=== PATIENT | male | born 1960 | race Caucasian/White ===

== ENCOUNTER 2018-05-01 20:36 | Emergency (ER) | payer OTHER, SELFPAY ==
[2018-05-01] VITALS (7 sets, daily range): BP systolic 176–188; BP diastolic 86–94; PULSE 41–47; RESP 14–17; TEMP 36.4; O2SAT 95–97
--- NOTE | 2018-05-01 21:26 | DI.CT_ITS ---
SYMPTOMS/DIAGNOSIS: RT SIDED HEADACHE, HYPERTENSION, BRADYCARDIA CRANIAL CT (WITHOUT CONTRAST): A noncontrast cranial CT was performed. No priors. The ventricular system is normal in appearance. There is no evidence of an intracranial mass lesion. There is no evidence of a subdural or epidural hematoma. No focal areas of decreased attenuation are seen. CONCLUSION: Normal noncontrast Cranial CT.
--- NOTE | 2018-05-01 21:26 | DI.RAD_ITS ---
SYMPTOMS/DIAGNOSIS: TACHYCARDIA, HYPOTENSION, ? ACUTE DISEASE PA AND LATERAL CHEST: The heart size and pulmonary vasculature are within normal limits. The lungs are clear. No effusions or pneumothoraces are identified. The bones are intact. IMPRESSION: No acute pulmonary process.
--- NOTE | 2018-05-01 21:37 | W.ED.GENAD ---
Discharge Plan Disposition Patient Disposition: HOME Condition: Good Discharge Details Chief Complaint: GenMedical Clinical Impression: Hypertension, Bradycardia Primary Care Provider: Alonzo Palacio ED Provider: Yanni Diop Home Meds and New Rx's Prescriptions: Continue aspirin [Aspirin Low-Strength] 81 MG tablet,chewable 81 mg PO DAILY Qty: 180 RF: 0 amlodipine [Norvasc] 5 MG tablet 5 mg PO DAILY Qty: 90 RF: 4 dronedarone [Multaq] 400 MG tablet 400 mg PO BID Qty: 120 RF: 3 sildenafil [Viagra] 50 MG tablet 50 mg PO PRN Qty: 6 RF: 12 metoprolol succinate [Toprol XL] 25 MG tablet extended release 24 hr 25 mg PO DAILY Qty: 90 RF: 3 ascorbic acid (vitamin C) 1,000 MG tablet,chewable 1,000 mg PO DAILY RF: 0 Discontinued bisoprolol-hydrochlorothiazide 10-6.25 mg Tablet 1 tab PO DAILY RF: 0 Discharge Instructions Instructions: Bradycardia (ED), Hypertension (ED) Additional Instructions: Hold on taking any further bisoprolol/HCTZ for high blood pressure as it may be causing or contributing to your lower heart rate. Hold your metoprolol dose if your heart rate is less than 50. Restart your regular dose amlodipine as directed if your systolic blood pressure greater than 140. Take your other regular medications as directed. Call your primary care doctor's office to schedule follow-up appointment within the next 2 days. Take Tylenol as needed and directed for pain. Eat a well-balanced diet and watch your sodium intake as this may contribute to hypertension. Return to the emergency department with any worsening or new concerning symptoms. Discharge Data Discharge Physician: Yanni Diop Medical Decision Making Patient is a 57-year-old male with a history of hypertension, bradycardia, atrial fibrillation who presents for headache, hypertension and bradycardia at home today. Headache now resolved. Blood pressure at home 200/100, heart rate 40. Blood pressure usually 130s/80s, and heart rate in the past has been in the 50s and after recent change from sotalol/HCTZ to metoprolol, heart rate has been 70s. Patient denies any associated symptoms of chest pain, shortness of breath, vision changes, nausea, vomiting, dizziness, abdominal pain, recent illness. He did take a dose of bisoprolol/HCTZ 10/6.25 mg tonight. Blood pressure on my evaluation 195/97. Heart rate 44. Oxygen saturation and respiratory rate within normal limits. Normal cardiac and lung exam. No focal deficits. Abdomen soft nontender. 2057 --EKG noted a rate of 44, sinus bradycardia, no acute ST elevation or depression. QTc 409. QRS 100. Discussed with patient that as he has currently asymptomatic, and blood pressure has decreased, this is reassuring, however will place an IV, check electrolytes, troponin, chest x-ray and CT head. Discussed with patient that his hypertension could have been due to pain associated with this headache today. We also discussed the possibility of diet and processed foods including high sodium which can contribute to hypertension. He does admit to eating a chicken pot pie. Patient is followed by cardiology Dr. Méndez. We will follow-up on results, reassess and call cardiology for recommendations once workup complete. 2309 -- labs reviewed essentially unremarkable. Creatinine 1.51. Troponin negative. CT head and chest x-ray negative. Will call [facility]. 2329 -- D/w Dr. Méndez -discussed workup and patient being asymptomatic. Recommend patient hold on any further metoprolol for heart rate less than 50, and to restart his amlodipine if blood pressure greater than 140. He recommends that patient no longer take the bisoprololl/hydrochlorothiazide for further hypertension as this likely contributing to the bradycardia. Recommend follow-up with PCP. Plan discussed with patient and he feels good and is requesting to go home. He was instructed to return with any concerns. He is instructed to call his primary care doctor tomorrow morning to schedule follow-up appointment within the next 2 days and return to the ER with any concerns. HPI General Mode of arrival: ambulatory. Date/Time Provider Initiated Documentation: 05/01/18 21:01. Limitations to Documentation: no limitations. Information obtained by: patient. HPI Narrative: Patient is a 57-year-old male with a history of hypertension, bradycardia and atrial fibrillation who presents for headache, hypertension and bradycardia today. Patient states this headache started gradually today, on the right side of his face, felt aching and is now resolved. States it is not the worst headache of his life and denies any thunderclap quality. Denies vision changes, nausea, vomiting, dizziness. He states that he has a history of previous bradycardia in which his heart rate was in the 50s and decreased energy, for which he was seen by his primary care doctor and cardiology and was switched from sotalol/HCTZ to metoprolol one month ago which improved his heart rate to the 70s and increased his energy level. He states he last checked his heart rate 2 days ago and it was 74. He states tonight at the time of his headache, his blood pressure was 205/100 and his heart rate was in the 40s. He states his blood pressure is normally 130s/80s. He states he took his multaq, metoprolol and aspirin this morning. He states for his hypertension tonight, he took a dose of 10/6.25 by bisoprolol/hydrochlorothiazide which he was advised by cardiology to take as needed for hypertension not relieved with his regular medications. He states he was diagnosed with atrial fibrillation 3 years ago but was not recommended to take anticoagulation per Dr. Méndez. Past medical history: Hypertension, bradycardia, atrial fibrillation Surgical history: Knee arthroscopy Social history: Denies tobacco, alcohol or drugs Medications: Aspirin, Multitak, metoprolol, Viagra as needed (denies any recent use of viagra) Allergies: None PCP: Dr. Palacio Cardiology: Dr. Méndez Related Data Home Medications Medication Instructions Recorded Confirmed aspirin [Aspirin Low-Strength] 81 mg PO DAILY #180 tab-cap 04/08/15 05/01/18 ascorbic acid (vitamin C) 1,000 mg PO DAILY 01/12/17 05/01/18 amlodipine [Norvasc] 5 mg PO DAILY #90 tab 05/07/17 05/01/18 dronedarone [Multaq] 400 mg PO BID #120 tab-cap 09/28/17 05/01/18 metoprolol succinate [Toprol XL] 25 mg PO DAILY #90 tab-cap 04/06/18 05/01/18 sildenafil [Viagra] 50 mg PO PRN #6 tab 04/06/18 05/01/18 Previous Rx's Medication Instructions Recorded amlodipine [Norvasc] 5 mg PO DAILY #90 tab 05/07/17 dronedarone [Multaq] 400 mg PO BID #120 tab-cap 09/28/17 metoprolol succinate [Toprol XL] 25 mg PO DAILY #90 tab-cap 04/06/18 sildenafil [Viagra] 50 mg PO PRN #6 tab 04/06/18 Allergies Allergy/AdvReac Type Severity Reaction Status Date / Time metoprolol AdvReac Mild fatigue Unverified 04/06/18 15:48 General Stated Complaint: GenMedical GLADYS: 3 Review of Systems Review of Systems All systems reviewed & are unremarkable except as noted in HPI and below Constitutional Denies chills, Denies excessive sweating, Denies fatigue, Denies fever(s), Denies weakness and Denies weight loss Eyes Reports system reviewed and no additional complaints, except as docu and Denies blurry vision ENT Denies vertigo, Denies dizziness, Denies otalgia, Denies nasal congestion, Denies sore throat and Denies throat swelling Cardiovascular Denies chest pain, Denies syncope, Denies rapid heart rate and Denies dyspnea Respiratory Denies dyspnea Gastrointestinal Denies abdominal pain, Denies diarrhea and Denies vomiting Genitourinary Denies hematuria, Denies dysuria and Denies flank pain Musculoskeletal Denies back pain and Denies joint swelling Integumentary/Breasts Denies lesions and Denies rash Neurologic Denies behavioral changes, Denies confusion, Denies vertigo, Denies dizziness, Denies syncope and Denies weakness Psychiatric Denies behavioral changes, Denies confusion and Denies depression Endocrine Denies excessive sweating and Denies fatigue Hematologic/Lymphatic Denies easy bruising and Denies lymphadenopathy Allergic/Immunologic Denies throat swelling [facility] Family History Mother Essential hypertension Father Heart disease Neoplasm Sister No problems noted. Brother No problems noted. Grandfather No problems noted. Grandfather Heart disease Grandmother Neoplasm Grandmother Neoplasm Sister No problems noted. Social History Smoking/Tobacco Use Status: Never Surgical History Colonoscopy - IV Sedation (07/29/16) Exam Const General: cooperative and healthy appearing Orientation: alert and awake HENAL Head: normal to inspection Ears: hearing grossly normal bilaterally, external ears normal and TM's normal bilaterally General nose exam: external nose normal Face and sinus: normal facial exam Mouth: oral mucosae normal Teeth and gingiva: dentition normal Throat: posterior oropharynx normal Eyes General: appearance normal, both eyes and all related structures Eyelids: eyelids normal Pupils: PERRL EOM: EOM intact bilaterally Neck Neck: normal visual inspection Lymphatic: no lymphadenopathy noted Chest Chest: normal inspection of the chest Resp Effort & Inspection: normal respiratory effort and able to speak in complete sentences Auscultation: clear to auscultation bilaterally Cardio Rate: regular rate Rhythm: regular rhythm GI Inspection: normal to inspection Palpation: soft, not firm, no guarding, no hepatosplenomegaly, no masses and nontender Auscultation: normal bowel sounds Back/Spine/Pelvis Back: no CVA tenderness Skin General skin exam: no rashes or lesions noted Neuro General: alert, awake, oriented x3, no meningeal signs, no focal motor deficits and CN's II-XI intact bilaterally Cognition: normal cognition Speech: speech normal Gait: normal gait and not ataxic Motor: muscle tone normal throughout, strength 5/5 throughout and no pronator drift Sensory Exam: no sensory deficits noted Extrem General: normal to inspection, full ROM and normal capillary refill Psych Appearance: grossly normal Mental Status: mental status grossly normal Speech and Movement: speech and movement normal Affect: normal affect Thought Process: normal Course Respiratory Effort Non-Labored 05/01/18 21:04
[2018-05-01 21:41] LABS: Abs Immature Grans 0.02 k/cumm (0.0-0.09); Absolute Basophil Count 0.05 k/cumm (0.0-0.2); Absolute Eosinophil Count 0.17 k/cumm (0.0-0.7); Absolute Monocyte Count 0.64 k/cumm (0.11-0.7); Absolute Neutrophil Count 4.44 k/cumm (1.2-6.7); Basophils % 0.6; Eosinophils % 2.2; HCT 41.9 % (40.0-50.0); HGB 15.3 g/dL (13.5-17.5); Immature Grans % 0.3; Mean Corp. HGB Concentration 36.5 g/dL (32.0-36.0); Mean Corpuscular Hemoglobin 29.9 pg (27.0-33.0); Mean Corpuscular Volume 81.8 fL (80-95); Mean Platelet Volume 11.6 fL (8.0-11.0); Monocytes % 8.2; Neutrophils % 56.7; Platelet Count 179 x1000/uL (130-400); RBC 5.12 m/cumm (4.50-6.00); White Blood Cell Count 7.82 k/cumm (4.4-10.8)
--- NOTE | 2018-05-01 21:44 | ED.GENADUL_ITS ---
Discharge Plan Disposition Patient Disposition: HOME Condition: Good Discharge Details Chief Complaint: GenMedical Clinical Impression: Hypertension, Bradycardia Primary Care Provider: Alonzo Palacio ED Provider: Yanni Diop Home Meds and New Rx's Prescriptions: Continue aspirin [Aspirin Low-Strength] 81 MG tablet,chewable 81 mg PO DAILY Qty: 180 RF: 0 amlodipine [Norvasc] 5 MG tablet 5 mg PO DAILY Qty: 90 RF: 4 dronedarone [Multaq] 400 MG tablet 400 mg PO BID Qty: 120 RF: 3 sildenafil [Viagra] 50 MG tablet 50 mg PO PRN Qty: 6 RF: 12 metoprolol succinate [Toprol XL] 25 MG tablet extended release 24 hr 25 mg PO DAILY Qty: 90 RF: 3 ascorbic acid (vitamin C) 1,000 MG tablet,chewable 1,000 mg PO DAILY RF: 0 Discontinued bisoprolol-hydrochlorothiazide 10-6.25 mg Tablet 1 tab PO DAILY RF: 0 Discharge Instructions Instructions: Bradycardia (ED), Hypertension (ED) Additional Instructions: Hold on taking any further bisoprolol/HCTZ for high blood pressure as it may be causing or contributing to your lower heart rate. Hold your metoprolol dose if your heart rate is less than 50. Restart your regular dose amlodipine as directed if your systolic blood pressure greater than 140. Take your other regular medications as directed. Call your primary care doctor's office to schedule follow-up appointment within the next 2 days. Take Tylenol as needed and directed for pain. Eat a well-balanced diet and watch your sodium intake as this may contribute to hypertension. Return to the emergency department with any worsening or new concerning symptoms. Discharge Data Discharge Physician: Yanni Diop Medical Decision Making Patient is a 57-year-old male with a history of hypertension, bradycardia, atrial fibrillation who presents for headache, hypertension and bradycardia at home today. Headache now resolved. Blood pressure at home 200/100, heart rate 40. Blood pressure usually 130s/80s, and heart rate in the past has been in the 50s and after recent change from sotalol/HCTZ to metoprolol, heart rate has been 70s. Patient denies any associated symptoms of chest pain, shortness of breath, vision changes, nausea, vomiting, dizziness, abdominal pain, recent illness. He did take a dose of bisoprolol/HCTZ 10/6.25 mg tonight. Blood pressure on my evaluation 195/97. Heart rate 44. Oxygen saturation and respiratory rate within normal limits. Normal cardiac and lung exam. No focal deficits. Abdomen soft nontender. 2057 --EKG noted a rate of 44, sinus bradycardia, no acute ST elevation or depression. QTc 409. QRS 100. Discussed with patient that as he has currently asymptomatic, and blood pressure has decreased, this is reassuring, however will place an IV, check electrolytes, troponin, chest x-ray and CT head. Discussed with patient that his hypertension could have been due to pain associated with this headache today. We also discussed the possibility of diet and processed foods including high sodium which can contribute to hypertension. He does admit to eating a chicken pot pie. Patient is followed by cardiology Dr. Méndez. We will follow-up on results, reassess and call cardiology for recommendations once workup complete. 2309 -- labs reviewed essentially unremarkable. Creatinine 1.51. Troponin negative. CT head and chest x-ray negative. Will call [facility]. 2329 -- D/w Dr. Méndez -discussed workup and patient being asymptomatic. Recommend patient hold on any further metoprolol for heart rate less than 50, and to restart his amlodipine if blood pressure greater than 140. He recommends that patient no longer take the bisoprololl/hydrochlorothiazide for further hypertension as this likely contributing to the bradycardia. Recommend follow-up with PCP. Plan discussed with patient and he feels good and is requesting to go home. He was instructed to return with any concerns. He is instructed to call his primary care doctor tomorrow morning to schedule follow-up appointment within the next 2 days and return to the ER with any concerns. HPI General Mode of arrival: ambulatory . Date/Time Provider Initiated Documentation: 05/01/18 21:01 . Limitations to Documentation: no limitations . Information obtained by: patient . HPI Narrative: Patient is a 57-year-old male with a history of hypertension, bradycardia and atrial fibrillation who presents for headache, hypertension and bradycardia today. Patient states this headache started gradually today, on the right side of his face, felt aching and is now resolved. States it is not the worst headache of his life and denies any thunderclap quality. Denies vision changes, nausea, vomiting, dizziness. He states that he has a history of previous bradycardia in which his heart rate was in the 50s and decreased energy, for which he was seen by his primary care doctor and cardiology and was switched from sotalol/HCTZ to metoprolol one month ago which improved his heart rate to the 70s and increased his energy level. He states he last checked his heart rate 2 days ago and it was 74. He states tonight at the time of his headache, his blood pressure was 205/100 and his heart rate was in the 40s. He states his blood pressure is normally 130s/ 80s. He states he took his multaq, metoprolol and aspirin this morning. He states for his hypertension tonight, he took a dose of 10/6.25 by bisoprolol/ hydrochlorothiazide which he was advised by cardiology to take as needed for hypertension not relieved with his regular medications. He states he was diagnosed with atrial fibrillation 3 years ago but was not recommended to take anticoagulation per Dr. Méndez. Past medical history: Hypertension, bradycardia, atrial fibrillation Surgical history: Knee arthroscopy Social history: Denies tobacco, alcohol or drugs Medications: Aspirin, Multitak, metoprolol, Viagra as needed (denies any recent use of viagra) Allergies: None PCP: Dr. Palacio Cardiology: Dr. Méndez Related Data Home Medications Medication Instructions Recorded Confirmed aspirin [Aspirin Low-Strength] 81 mg PO DAILY #180 tab-cap 04/08/15 05/01/18 ascorbic acid (vitamin C) 1,000 mg PO DAILY 01/12/17 05/01/18 amlodipine [Norvasc] 5 mg PO DAILY #90 tab 05/07/17 05/01/18 dronedarone [Multaq] 400 mg PO BID #120 tab-cap 09/28/17 05/01/18 metoprolol succinate [Toprol XL] 25 mg PO DAILY #90 tab-cap 04/06/18 05/01/18 sildenafil [Viagra] 50 mg PO PRN #6 tab 04/06/18 05/01/18 Previous Rx's Medication Instructions Recorded amlodipine [Norvasc] 5 mg PO DAILY #90 tab 05/07/17 dronedarone [Multaq] 400 mg PO BID #120 tab-cap 09/28/17 metoprolol succinate [Toprol XL] 25 mg PO DAILY #90 tab-cap 04/06/18 sildenafil [Viagra] 50 mg PO PRN #6 tab 04/06/18 Allergies Allergy/AdvReac Type Severity Reaction Status Date / Time metoprolol AdvReac Mild fatigue Unverified 04/06/18 15:48 General Stated Complaint: GenMedical GLADYS: 3 Review of Systems Review of Systems All systems reviewed & are unremarkable except as noted in HPI and below Constitutional Denies chills, Denies excessive sweating, Denies fatigue, Denies fever(s), Denies weakness and Denies weight loss Eyes Reports system reviewed and no additional complaints, except as docu and Denies blurry vision ENT Denies vertigo, Denies dizziness, Denies otalgia, Denies nasal congestion, Denies sore throat and Denies throat swelling Cardiovascular Denies chest pain, Denies syncope, Denies rapid heart rate and Denies dyspnea Respiratory Denies dyspnea Gastrointestinal Denies abdominal pain, Denies diarrhea and Denies vomiting Genitourinary Denies hematuria, Denies dysuria and Denies flank pain Musculoskeletal Denies back pain and Denies joint swelling Integumentary/Breasts Denies lesions and Denies rash Neurologic Denies behavioral changes, Denies confusion, Denies vertigo, Denies dizziness, Denies syncope and Denies weakness Psychiatric Denies behavioral changes, Denies confusion and Denies depression Endocrine Denies excessive sweating and Denies fatigue Hematologic/Lymphatic Denies easy bruising and Denies lymphadenopathy Allergic/Immunologic Denies throat swelling [facility] Family History Mother Essential hypertension Father Heart disease Neoplasm Sister No problems noted. Brother No problems noted. Grandfather No problems noted. Grandfather Heart disease Grandmother Neoplasm Grandmother Neoplasm Sister No problems noted. Social History Smoking/Tobacco Use Status: Never Surgical History Colonoscopy - IV Sedation (07/29/16) Exam Const General: cooperative and healthy appearing Orientation: alert and awake HENNC Head: normal to inspection Ears: hearing grossly normal bilaterally, external ears normal and TM's normal bilaterally General nose exam: external nose normal Face and sinus: normal facial exam Mouth: oral mucosae normal Teeth and gingiva: dentition normal Throat: posterior oropharynx normal Eyes General: appearance normal, both eyes and all related structures Eyelids: eyelids normal Pupils: PERRL EOM: EOM intact bilaterally Neck Neck: normal visual inspection Lymphatic: no lymphadenopathy noted Chest Chest: normal inspection of the chest Resp Effort & Inspection: normal respiratory effort and able to speak in complete sentences Auscultation: clear to auscultation bilaterally Cardio Rate: regular rate Rhythm: regular rhythm GI Inspection: normal to inspection Palpation: soft, not firm, no guarding, no hepatosplenomegaly, no masses and nontender Auscultation: normal bowel sounds Back/Spine/Pelvis Back: no CVA tenderness Skin General skin exam: no rashes or lesions noted Neuro General: alert, awake, oriented x3, no meningeal signs, no focal motor deficits and CN's II-XI intact bilaterally Cognition: normal cognition Speech: speech normal Gait: normal gait and not ataxic Motor: muscle tone normal throughout, strength 5/5 throughout and no pronator drift Sensory Exam: no sensory deficits noted Extrem General: normal to inspection, full ROM and normal capillary refill Psych Appearance: grossly normal Mental Status: mental status grossly normal Speech and Movement: speech and movement normal Affect: normal affect Thought Process: normal Course Respiratory Effort Non-Labored 05/01/18 21:04
[2018-05-01 21:56] LABS: ALT 27 U/L (12-78); AST 17 U/L (15-37); Alkaline Phosphatase 90 U/L (46-116); Anion Gap 8.5 mmol/L (3-11); BUN 23 mg/dL (7-18); Bilirubin, Direct 0.11 mg/dL (0.00-0.20); Bilirubin, Total 0.5 mg/dL (0.2-1.0); CO2 28.5 mmol/L (21.0-32.0); CREATININE 1.51 mg/dL (0.70-1.30); Calcium 8.5 mg/dL (8.5-10.1); Chloride 104 mmol/L (98-107); Estimated GFR 47.87 (mL/min/1.73m2); Glucose 110 mg/dL (70-100); Magnesium 2.2 mg/dL (1.8-2.4); Potassium 3.6 mmol/L (3.5-5.1); Sodium 141 mmol/L (136-145); Total Protein 7.1 g/dL (6.4-8.2)
[2018-05-01 22:02] LABS: Troponin I < 0.02 ng/mL (0.00-0.06)
--- NOTE | 2018-05-01 22:52 | DI.VRAD_ITS ---
EXAM: XR Chest, 2 Views EXAM DATE/TIME: 05/01/2018 9:30 PM CLINICAL HISTORY: 57 years old, male; Signs and symptoms; Other: Hypertension, bradycardia TECHNIQUE: XR of the chest, 2 views. COMPARISON: No relevant prior studies available. FINDINGS: Lungs: Unremarkable. No consolidation. Pleural space: Unremarkable. No pleural effusion. No pneumothorax. Heart/Mediastinum: Unremarkable. No cardiomegaly. Bones/joints: Chronic osseous changes. IMPRESSION: No acute cardiopulmonary findings. Dictated and Authenticated by: Jone Conteh MD. Ordering:CHARLIE FERREIRA MD
--- NOTE | 2018-05-01 22:59 | DI.VRAD_ITS ---
EXAM: CT Head Without Intravenous Contrast EXAM DATE/TIME: 05/01/2018 9:30 PM CLINICAL HISTORY: 57 years old, male; Pain and signs and symptoms; Other: Hypertension, bradycardia; Headache; Other: RT. Sided TECHNIQUE: Axial computed tomography images of the head/brain without intravenous contrast. All CT scans at this facility use at least one of these dose optimization techniques: automated exposure control; mA and/or kV adjustment per patient size (includes targeted exams where dose is matched to clinical indication); or iterative reconstruction. Coronal and sagittal reformatted images were created and reviewed. COMPARISON: No relevant prior studies available. FINDINGS: Brain: Minimal age-related involutional changes of the brain are present. Ventricles: Normal. No ventriculomegaly. Bones/joints: Normal. No acute fracture. Sinuses: Normal as visualized. No acute sinusitis. Mastoid air cells: Normal as visualized. No mastoid effusion. Soft tissues: Normal. IMPRESSION: No acute intracranial findings. Dictated and Authenticated by: Jone Conteh MD. Ordering:CHARLIE FERREIRA MD
== END 2018-05-01 23:51 | disposition home or self-care (01) ==
PROVIDERS: Emergency Provider Physician Assistant; PCP Emergency Medicine
DX: R00.1 Bradycardia, unspecified (principal); I10 Essential (primary) hypertension; R51 Headache; I48.91 Unspecified atrial fibrillation
CPT/HCPCS: 36415; 80053; 80076; 93005; 99285; 70450; 71046; 83735; 84484; 85025; 93010

== ENCOUNTER 2018-07-20 14:19 | Outpatient (CLI) | payer OTHER, SELFPAY | END 2018-07-20 14:39 | PROVIDERS: PCP Emergency Medicine; Visit Provider Student in an Organized Health Care Education/Training Program | DX: I48.0 Paroxysmal atrial fibrillation (principal); R06.02 Shortness of breath; I10 Essential (primary) hypertension | CPT/HCPCS: 93005; 93010 ==

== ENCOUNTER 2018-07-27 00:18 | Outpatient (CLI) | payer OTHER, SELFPAY ==
--- NOTE | 2018-07-27 06:54 | MERGEMPI_ITS ---
*[facility]* *[facility]* [address] [place] [address] Myocardial Perfusion Imaging - SPECT Jonathan protocol Date of study: 07/27/2018 *PATIENT PRESENTATION* Height: 177.8cm (70in) Blood Pressure: Weight: 113.6kg (250lb) BSA: 2.41m^2 Referring physician: Zelalem Méndez Ordering physician: Zelalem Méndez Impressions: Negative stress test after maximal exercise. Summary: 1. Myocardial perfusion imaging: No myocardial perfusion defects noted. 2. The left ventricular end-systolic volume is 72ml. The calculated left ventricular ejection fraction after stress: 42%. LV global systolic function is normal. No left ventricular regional motion abnormality. 3. Stress ECG conclusions: The stress ECG is negative. 4. Stress: The target heart rate was achieved. There is resting hypertension with a hypertensive response to stress. Exercise capacity is above normal for age (13.5 METS). Indication: R06.09. History: REASON FOR VISIT: EPISODE OF CHEST TIGHTNESS ASSOCIATED WITH SHORTNESS OF BREATH Risk factors: Family history of coronary artery disease. Hypertension. Obesity. Cholesterol: 152mg/dl. HDL: 40mg/dl. LDL: 101mg/dl. Triglycerides: 75mg/dl. ALLERGIES: BISOPROLOL MEDICATIONS: ASPIRIN 81 MG DAILY. ASCORBIC ACID 1000 MG DAILY. DRONEDARONE 400 MG BID. SILDENAFIL 50 MG PRN. HYDROCHLOROTHIAZIDE 25 MG DAILY. METOPROLOL SUCCINATE ER 25 MG PRN. Imaging Technique: Protocol: Jonathan protocol. Acquisition: Gated SPECT; 1 day - rest/stress. The patient was imaged in the supine position. Attenuation correction used. Isotope administration: - Rest. Tc[99m]-sestamibi. Dose: 10.6mCi. Injection time: 08:15 AM. Injection to stress time: 00:45. - Stress. Tc[99m]-sestamibi. Dose: 33mCi. Injection time: 10:20 AM. 1-2 min before end of exercise Baseline ECG: SINUS BRADYCARDIA. HR 58 BPM. Normal ECG. Stress protocol: + +---+ + !Stage !HR !BP (mmHg) ! + +---+ + !Baseline supine !58 !162/102 (122)! + +---+ + !Baseline standing !65 !164/98 (120) ! + +---+ + !Stage I; 1.7mph, 10degrees; 3 min !92 !148/82 (104) ! + +---+ + !Stage II; 2.5mph, 12degrees; 3 min !117!198/104 (135)! + +---+ + !Stage III; 3.4mph, 14degrees; 3 min!126!196/108 (137)! + +---+ + !Peak stress !146! ! + +---+ + !Recovery; 1 min !85 !210/98 (135) ! + +---+ + !Recovery; 3 min !74 !212/100 (137)! + +---+ + !Recovery; 6 min !77 !158/106 (123)! + +---+ + !Recovery; 9 min !77 !146/94 (111) ! + +---+ + * Stress results: Maximal heart rate during stress was 146bpm (90% of maximal predicted heart rate). The maximal predicted heart rate was 162bpm. The target heart rate was achieved. There is resting hypertension with a hypertensive response to stress. The rate-pressure product for the peak heart rate and blood pressure was 43099il Hg/min. Exercise capacity is above normal for age (13.5 METS). Stress ECG: TREADMILL PORTION OF STRESS TEST ENDED IN 11 MINUTES & 1 SECOND BECAUSE OF FATIGUE NORMAL HEART RATE AND BLOOD PRESSURE RESPONSE TO EXERCISE. HYPERTENSIVE BP AT REST. MAX HR = 146 % OF TARGET = 90 OCCASIONAL PVCs. APPROXIMATE METS ACHIEVED = 13.46 NO ANGINA NO SIGNIFICANT ST SEGMENT CHANGES ABOVE AVERAGE FUNCTIONAL CAPACITY FOR EXERCISE. The stress ECG is negative. Monk treadmill score: 11. This score predicts a low risk of cardiac events. Myocardial perfusion: Imaging information: gated. The image quality was good. The left ventricle is mildly dilated. No myocardial perfusion defects noted. Ventricular Function (Wall Motion): The left ventricular end-systolic volume is 72ml. The calculated left ventricular ejection fraction after stress: 42%. LV global systolic function is normal. No left ventricular regional motion abnormality. Study data: Zelalem Méndez MD supervised and was readily available during the procedure. This study was interpreted by [facility]. Study status: Routine. Consent: The risks, benefits, and alternatives to the procedure were explained to the patient and informed consent was obtained. Procedure: Initial setup. A baseline ECG was recorded. Surface ECG leads and manual cuff blood pressure measurements were monitored. Heart sounds: Normal. Lung sounds: Normal. Treadmill exercise testing was performed using the Jonathan protocol. Study completion: All catheters inserted during the procedure were removed. The patient tolerated the procedure well and was discharged from the lab. Discharge: The patient left the laboratory in stable condition. Birthdate: Patient birthdate: 1960. Sex: Gender: male. Study date: Study date: 07/27/2018. Study time: 06:54 AM. Signature Documentation: - The imaging portion of this study was interpreted by Nuclear Decator Operator Zelalem Méndez MD. - The imaging portion of this study was interpreted by Nuclear Radiologist Piotr Manjarrez MD. - The Stress ECG portion of this study was interpreted by Zelalem Méndez MD. Electronically signed by Zelalem Méndez 07/27/2018 12:42
== END 2018-07-27 00:38 ==
PROVIDERS: PCP Emergency Medicine; Visit Provider Student in an Organized Health Care Education/Training Program
DX: R06.09 Other forms of dyspnea (principal); R07.89 Other chest pain; I10 Essential (primary) hypertension; Z82.49 Family history of ischemic heart disease and other diseases of the circulatory system
CPT/HCPCS: 78452; 93017

== ENCOUNTER 2019-08-21 12:05 | Outpatient (CLI) | payer OTHER, SELFPAY ==
--- NOTE | 2019-08-21 08:32 | DI.RAD_ITS ---
EXAM: XR HIP LT AP AND LAT ONLY INDICATION: LEFT HIP PAIN. COMPARISON: No exams were available for comparison TECHNIQUE: 2D digital imaging was performed. FINDINGS: Hypertrophic changes and subchondral sclerosis are seen in the left acetabulum. The left hip joint i s otherwise well maintained. The bones are intact and normally mineralized. The soft tissues are un remarkable. IMPRESSION: Mild degenerative changes of the left hip.
== END 2019-08-21 12:25 ==
PROVIDERS: PCP Emergency Medicine; Visit Provider Physician Assistant
DX: M25.552 Pain in left hip (principal); M16.12 Unilateral primary osteoarthritis, left hip
CPT/HCPCS: 73502

== ENCOUNTER 2020-02-15 01:49 | Outpatient (CLI) | payer OTHER, SELFPAY ==
--- NOTE | 2020-03-12 08:33 | W.ZIOMONITOR ---
Date of service: 03/12/20 Time of Service: 08:33 ZIO Patch Historical Society Director Referring Provider:: Snoa Indications:: Afib Note: This is a 2-week ZIO patch ordered for the indication of atrial fibrillation. ?Patient was in normal sinus rhythm for the majority of the recording with an average heart rate of 65 bpm. ?Patient had one short episode of ventricular tachycardia lasting 4 beats. ?There were 8 episodes of supraventricular tachycardia with the longest lasting 9 beats. ?Atrial fibrillation was present for 4% of the recording with the longest duration 7 hours and 30 minutes. During atrial fibrillation heart rates ranged from 57 to 199 bpm with an average of 101 bpm. ?There were rare isolated supraventricular and ventricular ectopic beats. ?Patient triggered events were associate with atrial fibrillation.
== END 2020-02-15 02:09 ==
PROVIDERS: PCP Emergency Medicine; Visit Provider Internal Medicine Cardiovascular Disease
DX: I48.91 Unspecified atrial fibrillation (principal); I47.2 Ventricular tachycardia; I47.1 Supraventricular tachycardia; I49.3 Ventricular premature depolarization

== ENCOUNTER 2020-03-21 15:25 | Outpatient (CLI) | payer OTHER, SELFPAY ==
--- NOTE | 2020-03-21 | DI.US_ITS ---
APPROVED REPORT EXAM: Comprehensive 2D, Doppler, and color-flow Echocardiogram Patient Location: Out-Patient Regulatory Affairs Portfolio Leader: Martha Bender RDCS (AE) Indications: CHF, Edema Other Information Study Quality: Adequate Conclusion Left Ventricle : The left ventricle is normal size. There is normal left ventricular wall thickness. There is normal LV segmental wall motion. The left ventricular diastolic function is normal. The left ventricular systolic function is slightly decreased LVEF is 47%. Right Ventricle : The right ventricle is normal size. The right ventricular systolic function is norm al. The RVSP is 27.5 mmHg. Atria : Left atrium is mildly dilated. The right atrium size is normal. Valves: There are no hemodynamically significant valvular lesions. Great Vessels : The aortic root is normal in size. The ascending aorta is moderately dilated. Aortic arch is normal in caliber. IVC is normal in size and collapses >50% with inspiration. Compared to echocardiogram from 02/26/2015, the ejection fraction has decreased slightly. Wall motion Left Ventricle The left ventricle is normal size. The left ventricular systolic function is slightly decreased There is normal left ventricular wall thickness. There is normal LV segmental wall motion. The left ventri cular diastolic function is normal. There is no ventricular septal defect visualized. LVEF is 47%. Right Ventricle The right ventricle is normal size. The right ventricular systolic function is normal. The RVSP is 27 .5 mmHg. Atria Left atrium is mildly dilated. The right atrium size is normal. The interatrial septum is intact with no evidence for an atrial septal defect. Aortic Valve Aortic valve is trileaflet. There is no aortic valvular stenosis. No aortic regurgitation is present. Mitral Valve Mild mitral annular calcification. No evidence of mitral valve stenosis. Trace to mild mitral regurgi tation. Tricuspid Valve The tricuspid valve is normal in structure. There is no tricuspid valve stenosis. Mild tricuspid regu rgitation. Pulmonic Valve The pulmonary valve is normal in structure. There is no pulmonic valvular stenosis. Trace pulmonic re gurgitation. Great Vessels The aortic root is normal in size. The ascending aorta is moderately dilated. Aortic arch is normal i n caliber. IVC is normal in size and collapses >50% with inspiration. Pericardium There is no pericardial effusion. 2D Dimensions IVSD d PLAX 1.15 cm M: 0.6-1.2 LV Vol A2C d MOD 168.6 mL LVPW d PLAX 1.13 cm M: 0.6 - 1.2 LV Vol A4C d MOD 130.6 mL LVID d PLAX 4.96 cm M: 4.2 - 5.8 LA vol/ BSA A2C s A-L 36.6 mL/m2 LVDs 3.65 cm M: 2.5 - 4.0 LA vol/ BSA A4C s A-L 16.6 mL/m2 Ao Root d 3.71 cm M: 3.1 - 3.7 LA Vol/ BSA Biplane s A-L 24.7 mL/m2 RA Area A4C 16.01 cm2 LA Area A4C s MOD 15.79 cm2 RA Vol/ BSA A4C s A-L 19.3 mL/m2 LA Area A2C s MOD 23.53 cm2 Ao Asc Diam d 4.05 cm M: 2.6 - 3.4 LV EF A4C MOD 47.2 % LV EF Teichholz 50.6 % LV EF A2C MOD 47.6 % LVEF (Olvera's) 46.30 % M: 52 - 72 LV EF Biplane MOD 46.3 % LV Volume 111.43 mL M: 62 - 150 SV 71.88 mL LV Volume Index 48.65 mL/m2 M: 34 - 74 SV Index 31.32 mL/m2 LV Vol Biplane MOD 155.2 mL FS 25.80 % M-Mode TAPSE 2.11 cm (M/F) >1.7 LV Diastology MV E' medial 0.073 (>0.07 m/s) E/A Ratio 1.0 LV E/e MED 8.25 (<14) MV E Vmax 0.60 (0.4-1.3 m/s) MV E' lateral 0.073 (>0.1 m/s) MV A Vmax 0.60 (0.4-1.3 m/s) LV E/e LAT 8.20 (<14) MV E/A Ratio 0.95 MV E/E' medial 8.29 MV E/E' lateral 8.20 Aortic Valve LVOT Area 3.70 cm2 AoV Area Vmax 3.05 cm2 LVOT Vmax 1.13 m/s AoV Area/ BSA (Vmax) 1.33 cm2/m2 LVOT Mean Andrew. 0.68 m/s MULUGETA Mean Andrew. 2.47 cm2 LVOT Peak Grad 5.1 mmHg MULUGETA Mean Andrew. Index 1.07 cm2/m2 LVOT Mean Grad 2.3 mmHg LVOT VTI 0.257 m LVOT Diam s 2.15 cm AoV Vmax 1.38 m/s Velocity Ratio 0.81 AoV Mean Andrew. 1.03 m/s AoV Peak Grad 7.6 mmHg LVOT SV 95.28 mL AoV Mean Grad 4.6 mmHg AoV VTI 0.298 m AoV Area VTI 3.20 cm2 AoV Area/ BSA (VTI) 1.39 cm/m2 Mitral Valve MV DT 211 (160-240 msec) MR Vmax 4.69 m/s MV PHT 61 msec MR VTI 0.814 m MV Area PHT 3.59 cm2 MR Peak Grad 88.1 mmHg MV VTI 0.236 m MR Mean Grad 60.7 mmHg MV Area VTI 4.03 (4.0-6.0 cm2) MR PISA Radius 0.41 cm MR EROA 0.08 cm2 MR Aliasing Velocity 0.35 m/s MR PISA 1.05 cm2 Pulmonary Valve PV Vmax 0.98 (0.5-1.5 m/s) RVOT Peak Gr. 2.33 mmHg PV Peak Grad 3.9 mmHg RVOT Mean Gr. 1.15 mmHg PV Mean Grad 2.0 mmHg RVOT VTI 0.164 m PV VTI 0.208 m RVOT Vmax 0.76 m/s Tricuspid Valve TR Peak Grad 24.4 mmHg TR Vmax 2.47 m/s RA Pressure 3.00 mmHg RVSP (TR) 27.5 mmHg
== END 2020-03-21 15:45 ==
PROVIDERS: PCP Emergency Medicine; Visit Provider Emergency Medicine
DX: I50.9 Heart failure, unspecified; R60.0 Localized edema; I48.91 Unspecified atrial fibrillation
CPT/HCPCS: 93306

== ENCOUNTER 2020-05-01 02:46 | Outpatient (CLI) | payer OTHER, SELFPAY ==
[2020-05-01 13:13] LABS: Anion Gap 7.3 mmol/L (3-11); BUN 32 mg/dL (7-18); CO2 29.7 mmol/L (21.0-32.0); CREATININE 1.87 mg/dL (0.70-1.30); Calcium 8.8 mg/dL (8.5-10.1); Chloride 101 mmol/L (98-107); Estimated GFR 37.14 (mL/min/1.73m2); Glucose 255 mg/dL (74-106); Potassium 3.5 mmol/L (3.5-5.1); Sodium 138 mmol/L (136-145)
== END 2020-05-01 03:06 ==
PROVIDERS: PCP Emergency Medicine; Visit Provider Internal Medicine Cardiovascular Disease
DX: I48.0 Paroxysmal atrial fibrillation (principal); I10 Essential (primary) hypertension; Z92.89 Personal history of other medical treatment
CPT/HCPCS: 36415; 80048

== ENCOUNTER 2020-05-06 03:05 | Outpatient (CLI) | payer OTHER, SELFPAY ==
[2020-05-06 17:29] LABS: Hemoglobin A1C 6.1 % (<5.7)
== END 2020-05-06 03:25 ==
PROVIDERS: PCP Emergency Medicine; Visit Provider Emergency Medicine
DX: E11.9 Type 2 diabetes mellitus without complications (principal)
CPT/HCPCS: 36415; 83036

== ENCOUNTER 2020-05-17 08:28 | Outpatient (CLI) | payer OTHER, SELFPAY ==
[2020-05-19 10:39] LABS: COVID-19 RT-PCR Result NEGATIVE (Negative)
== END 2020-05-17 08:48 ==
PROVIDERS: PCP Emergency Medicine; Visit Provider Emergency Medicine
DX: Z11.59 Encounter for screening for other viral diseases (principal); Z01.818 Encounter for other preprocedural examination
CPT/HCPCS: U0003

== ENCOUNTER 2020-05-20 01:28 | Outpatient (CLI) | payer OTHER, SELFPAY ==
[2020-05-20 10:51] LABS: Anion Gap 9.9 mmol/L (3-11); BUN 28 mg/dL (7-18); CO2 30.1 mmol/L (21.0-32.0); CREATININE 2.04 mg/dL (0.70-1.30); Chloride 103 mmol/L (98-107); Estimated GFR 33.59 (mL/min/1.73m2); Glucose 126 mg/dL (74-106); Potassium 3.7 mmol/L (3.5-5.1); Sodium 143 mmol/L (136-145)
== END 2020-05-20 01:48 ==
PROVIDERS: PCP Emergency Medicine; Visit Provider Emergency Medicine
DX: I10 Essential (primary) hypertension (principal)
CPT/HCPCS: 36415; 80048

== ENCOUNTER 2020-05-29 22:43 | Outpatient (REF) | payer OTHER, SELFPAY ==
[2020-05-29 23:28] LABS: Anion Gap 7.7 mmol/L (3-11); BUN 33 mg/dL (7-18); Bilirubin Negative (Negative); Blood Trace-intact (Negative); C-Reactive Protein 3.03 mg/dL (0.0-0.3); CO2 26.3 mmol/L (21.0-32.0); CREATININE 2.27 mg/dL (0.70-1.30); Calcium 8.8 mg/dL (8.5-10.1); Chloride 103 mmol/L (98-107); Clarity Clear (Clear); Glucose 120 mg/dL (74-106); Glucose Negative (Negative); Ketones Negative (Negative); Leukocyte Esterase Negative (Negative); Nitrite Negative (Negative); Potassium 4.1 mmol/L (3.5-5.1); Sodium 137 mmol/L (136-145); Specific Gravity 1.025 (1.005-1.025); Uric Acid 7.9 mg/dL (3.5-7.2); Urobilinogen 0.2 EU/dL (Up TO 0.2)
[2020-05-29 23:52] LABS: Bacteria Negative HPF (Negative); C & S Indicated? No; Casts Negative LPF (Negative); Crystals Negative HPF (Negative); Epithelial Cells Few HPF (Negative); Mucus Negative (Negative); Other Cells Negative (Negative); RBC 0-2 HPF (0-2); WBC Negative HPF (0-5)
== END 2020-05-29 23:03 ==
LOC: LBN 22:43
PROVIDERS: PCP Emergency Medicine; Visit Provider Emergency Medicine
DX: N28.9 Disorder of kidney and ureter, unspecified (principal); I10 Essential (primary) hypertension; R30.0 Dysuria
CPT/HCPCS: 80048; 81003; 81015; 84550; 86140

== ENCOUNTER 2020-05-30 02:34 | Outpatient (CLI) | payer OTHER, SELFPAY ==
--- NOTE | 2020-05-30 07:30 | DI.US_ITS ---
EXAM: US RENAL CLINICAL HISTORY: renal insufficiency,n28.9,chronic kidney disease. TECHNIQUE: Florez scale, color and spectral Doppler were used. COMPARISON: No exams were available for comparison FINDINGS: Renal size in cm: Right: 9.8 left: 10.4, normal parenchymal thickness. Echogenicity: Normal Hydronephrosis: No Cyst or mass: No Nephrolithiasis: No Other findings: None Bladder:Normal Prevoid vol: 246 cc Postvoid vol:12 cc Prostate volume 49 cc Both ureteral jets were seen. IMPRESSION: Renal ultrasound is within normal limits. DATA REPOSITORY:
== END 2020-05-30 02:54 ==
PROVIDERS: PCP Emergency Medicine; Visit Provider Emergency Medicine
DX: N28.9 Disorder of kidney and ureter, unspecified (principal)
CPT/HCPCS: 76770

== ENCOUNTER 2020-06-04 02:37 | Outpatient (CLI) | payer OTHER, SELFPAY ==
[2020-06-04 12:34] LABS: Anion Gap 4.2 mmol/L (3-11); BUN 28 mg/dL (7-18); C-Reactive Protein 0.52 mg/dL (0.0-0.3); CO2 31.8 mmol/L (21.0-32.0); CREATININE 1.92 mg/dL (0.70-1.30); Chloride 102 mmol/L (98-107); Estimated GFR 36.03 (mL/min/1.73m2); Glucose 110 mg/dL (74-106); Potassium 3.9 mmol/L (3.5-5.1); Sodium 138 mmol/L (136-145)
[2020-06-20 11:41] LABS: Albumin 58.1 % (55.8-66.1); Total Protein 7.1 g/dL (6.3-7.9)
[2020-06-20 11:45] LABS: Comment See Comments
== END 2020-06-04 02:57 ==
PROVIDERS: PCP Emergency Medicine; Visit Provider Emergency Medicine
DX: I10 Essential (primary) hypertension (principal); N28.9 Disorder of kidney and ureter, unspecified; R07.1 Chest pain on breathing
CPT/HCPCS: 36415; 80048; 84165; 86140

== ENCOUNTER 2020-06-11 04:09 | Outpatient (CLI) | payer OTHER, SELFPAY ==
[2020-06-11 13:03] LABS: Anion Gap 7.4 mmol/L (3-11); BUN 29 mg/dL (7-18); CO2 28.6 mmol/L (21.0-32.0); Calcium 8.7 mg/dL (8.5-10.1); Chloride 102 mmol/L (98-107); Estimated GFR 34.37 (mL/min/1.73m2); Glucose 110 mg/dL (74-106); Potassium 3.6 mmol/L (3.5-5.1); Sodium 138 mmol/L (136-145)
== END 2020-06-11 04:29 ==
PROVIDERS: PCP Emergency Medicine; Visit Provider Emergency Medicine
DX: I10 Essential (primary) hypertension (principal)
CPT/HCPCS: 36415; 80048

== ENCOUNTER 2020-06-24 03:51 | Outpatient (CLI) | payer OTHER, SELFPAY ==
[2020-06-26 22:52] LABS: Patient Race White; SARS-CoV-2 RNA Undetected (Undetected); SARS-CoV-2 Specimen Source Nasal
== END 2020-06-24 04:11 ==
PROVIDERS: PCP Emergency Medicine; Visit Provider Emergency Medicine
DX: Z11.59 Encounter for screening for other viral diseases (principal)
CPT/HCPCS: U0003

== ENCOUNTER 2020-07-02 04:15 | Outpatient (CLI) | payer OTHER, SELFPAY ==
[2020-07-02 09:19] LABS: Anion Gap 8.2 mmol/L (3-11); BUN 24 mg/dL (7-18); CO2 30.8 mmol/L (21.0-32.0); CREATININE 1.97 mg/dL (0.70-1.30); Chloride 104 mmol/L (98-107); Estimated GFR 34.97 (mL/min/1.73m2); Glucose 190 mg/dL (74-106); Potassium 3.8 mmol/L (3.5-5.1); Sodium 143 mmol/L (136-145)
== END 2020-07-02 04:35 ==
PROVIDERS: PCP Emergency Medicine; Visit Provider Emergency Medicine
DX: I10 Essential (primary) hypertension (principal)
CPT/HCPCS: 36415; 80048

== ENCOUNTER 2020-10-22 01:02 | Outpatient (CLI) | payer BC, SELFPAY ==
--- NOTE | 2020-10-22 | DI.US_ITS ---
APPROVED REPORT EXAM: Comprehensive 2D, Doppler, and color-flow Echocardiogram Patient Location: Out-Patient Metal Tile Setter: Martha Bender RDCS (AE) Indications: Persistent Atrial Fibrillation Other Information Study Quality: Adequate Conclusion Normal left ventricular wall thickness and chamber size. Estimated ejection fraction is 55 to 60%. There are no segmental wall motion abnormalities Normal right ventricular size and systolic function Both atria are normal in size Trileaflet aortic valve without stenosis or regurgitation Structurally normal mitral valve with mild regurgitation Structurally normal pulmonic and tricuspid valves Trace tricuspid regurgitation with normal estimated right ventricular systolic pressure Dilated ascending aorta measuring 4.24 cm Wall motion Left Ventricle The left ventricle is normal size. The left ventricular systolic function is normal. The left ventric ular ejection fraction is within the normal range. There is normal left ventricular wall thickness. T here is normal LV segmental wall motion. There is no ventricular septal defect visualized. LVEF is 55 %-60%. Right Ventricle The right ventricle is normal size. The right ventricular systolic function is normal. The RVSP is 19 .6mmHg. Atria The left atrium size is normal. The right atrium size is normal. The interatrial septum is intact wit h no evidence for an atrial septal defect. Aortic Valve The aortic valve is normal in structure. Aortic valve is trileaflet. There is no aortic valvular sten osis. No aortic regurgitation is present. Mitral Valve The mitral valve is normal in structure. No evidence of mitral valve stenosis. Mild mitral regurgitat ion. Tricuspid Valve The tricuspid valve is normal in structure. There is no tricuspid valve stenosis. Trace tricuspid reg urgitation. Pulmonic Valve The pulmonary valve is normal in structure. There is no pulmonic valvular stenosis. There is no pulmo benjamin valvular regurgitation. Great Vessels The aortic root is normal in size. The ascending aorta is dilated,4.24 cm Aortic arch is normal in ca liber. IVC is normal in size and collapses >50% with inspiration. Pericardium There is no pericardial effusion. 2D Dimensions IVSD d PLAX 1.15 cm M: 0.6-1.2 LV Vol A2C d MOD 116.1 mL LVPW d PLAX 1.13 cm M: 0.6 - 1.2 LV Vol A4C d MOD 137.4 mL LVID d PLAX 4.93 cm M: 4.2 - 5.8 LA vol/ BSA A2C s A-L 17.1 mL/m2 LVDs 3.50 cm M: 2.5 - 4.0 LA vol/ BSA A4C s A-L 19.7 mL/m2 Ao Root d 3.56 cm M: 3.1 - 3.7 LA Vol/ BSA Biplane s A-L 18.6 mL/m2 RA Area A4C 16.10 cm2 LA Area A4C s MOD 16.42 cm2 RA Vol/ BSA A4C s A-L 21.3 mL/m2 LA Area A2C s MOD 15.47 cm2 Ao Asc Diam d 4.24 cm M: 2.6 - 3.4 LV EF A4C MOD 55.0 % LV EF Teichholz 55.0 % LV EF A2C MOD 57.4 % LVEF (Olvera's) 56.55 % M: 52 - 72 LV EF Biplane MOD 56.6 % LV Volume 93.54 mL M: 62 - 150 SV 73.10 mL LV Volume Index 41.94 mL/m2 M: 34 - 74 SV Index 32.70 mL/m2 LV Vol Biplane MOD 129.3 mL FS 28.60 % M-Mode TAPSE 2.66 cm (M/F) >1.7 LV Diastology MV E' medial 0.074 (>0.07 m/s) E/A Ratio 1.4 LV E/e MED 8.30 (<14) MV E Vmax 0.62 (0.4-1.3 m/s) MV E' lateral 0.097 (>0.1 m/s) MV A Vmax 0.45 (0.4-1.3 m/s) LV E/e LAT 6.35 (<14) MV E/A Ratio 1.27 MV E/E' medial 8.31 MV E/E' lateral 6.38 Aortic Valve LVOT Area 3.69 cm2 AoV Area Vmax 3.27 cm2 LVOT Vmax 1.17 m/s AoV Area/ BSA (Vmax) 1.46 cm2/m2 LVOT Mean Andrew. 0.69 m/s MULUGETA Mean Andrew. 2.75 cm2 LVOT Peak Grad 5.5 mmHg MULUGETA Mean Andrew. Index 1.23 cm2/m2 LVOT Mean Grad 2.3 mmHg LVOT VTI 0.246 m LVOT Diam s 2.15 cm AoV Vmax 1.32 m/s Velocity Ratio 0.88 AoV Mean Andrew. 0.92 m/s AoV Peak Grad 7.0 mmHg LVOT SV 90.92 mL AoV Mean Grad 3.8 mmHg AoV VTI 0.260 m AoV Area VTI 3.50 cm2 AoV Area/ BSA (VTI) 1.57 cm/m2 Mitral Valve MV DT 211 (160-240 msec) MR Vmax 4.99 m/s MV PHT 61 msec MR VTI 1.830 m MV Area PHT 3.59 cm2 MR Peak Grad 99.5 mmHg MV VTI 0.191 m MR Mean Grad 76.9 mmHg MV VTI Annulus 0.193 m MR PISA Radius 0.36 cm MV Area VTI 4.81 (4.0-6.0 cm2) MR EROA 0.06 cm2 MR Aliasing Velocity 0.35 m/s MR PISA 0.82 cm2 Pulmonary Valve PV Vmax 1.00 (0.5-1.5 m/s) RVOT Peak Gr. 2.40 mmHg PV Peak Grad 4.0 mmHg RVOT Mean Gr. 1.15 mmHg PV Mean Grad 2.0 mmHg RVOT VTI 0.151 m PV VTI 0.199 m RVOT Vmax 0.78 m/s Tricuspid Valve TR Peak Grad 16.5 mmHg TR Vmax 2.04 m/s RA Pressure 3.00 mmHg RVSP (TR) 19.6 mmHg
== END 2020-10-22 01:22 ==
PROVIDERS: PCP Emergency Medicine; Visit Provider Internal Medicine Cardiovascular Disease
DX: I48.19 Other persistent atrial fibrillation (principal); I34.0 Nonrheumatic mitral (valve) insufficiency
CPT/HCPCS: 93306

== ENCOUNTER 2020-11-19 08:28 | Outpatient (REF) | payer BC, SELFPAY ==
[2020-11-19 13:42] LABS: Anion Gap 9.7 mmol/L (3-11); BUN 28 mg/dL (7-18); CO2 28.3 mmol/L (21.0-32.0); CREATININE 1.8 mg/dL (0.70-1.30); Calcium 8.8 mg/dL (8.5-10.1); Calculated LDL 101 mg/dL (<100); Chloride 104 mmol/L (98-107); Cholesterol 162 mg/dL (<200); Estimated GFR 38.68 (mL/min/1.73m2); Glucose 166 mg/dL (74-106); HDL Cholesterol 34 mg/dL (40-60); Potassium 3.9 mmol/L (3.5-5.1); Sodium 142 mmol/L (136-145); Triglyceride 135 mg/dL (<150)
[2020-11-19 13:43] LABS: Hemoglobin A1C 5.9 % (<5.7)
== END 2020-11-19 08:29 | disposition home or self-care (01) ==
LOC: LBN 08:28
PROVIDERS: PCP Emergency Medicine; Visit Provider Emergency Medicine
DX: E11.9 Type 2 diabetes mellitus without complications (principal); I10 Essential (primary) hypertension; N28.9 Disorder of kidney and ureter, unspecified
CPT/HCPCS: 80048; 80061; 83036

== ENCOUNTER 2021-03-17 15:21 | Outpatient (CLI) | payer BC, SELFPAY ==
--- NOTE | 2021-03-17 15:00 | DI.RAD_ITS ---
Exam(s) XR HIP PELVIS ADULT BL EXAM: XR HIP PELVIS ADULT BL CLINICAL HISTORY: hip pain. TECHNIQUE: 2D digital imaging was performed. COMPARISON: CR XR HIP LT AP LAT ONLY from 08/21/2019 FINDINGS: BONES: No acute fracture is present. No bony destructive lesion is seen. JOINTS: No dislocation present. There is bilateral acetabular spurring. There is spurring at the pub ic symphysis. SOFT TISSUE: Normal. IMPRESSION: Mild degenerative changes. DATA REPOSITORY: RADIATION DOSE DELIVERED:
== END 2021-03-17 15:22 | disposition home or self-care (01) ==
LOC: DIORS 15:21
PROVIDERS: PCP Emergency Medicine; Referring Provider Emergency Medicine; Visit Provider Physician Assistant
DX: M16.0 Bilateral primary osteoarthritis of hip (principal)
CPT/HCPCS: 73521

== ENCOUNTER 2021-10-16 02:31 | Outpatient (CLI) | payer BC, SELFPAY ==
[2021-10-16 18:25] LABS: Hemoglobin A1C 6.1 % (<5.7)
[2021-10-17 18:22] LABS: PSA, Screening 2.5 ng/mL (0.0-4.5)
== END 2021-10-16 02:32 | disposition home or self-care (01) ==
LOC: LBO 02:35
PROVIDERS: PCP Family Medicine; Visit Provider Emergency Medicine
DX: E11.9 Type 2 diabetes mellitus without complications (principal); Z12.5 Encounter for screening for malignant neoplasm of prostate
CPT/HCPCS: 36415; 84153; 83036

== ENCOUNTER 2022-03-05 19:33 | Emergency (ER) | payer BC, SELFPAY ==
[2022-03-05 19:38] VITALS: BP 148/87; PULSE 61; RESP 18; TEMP 36.4; O2SAT 100
--- NOTE | 2022-03-05 19:53 | ED.GENADUL_ITS ---
Discharge Plan Disposition Patient Disposition: HOME Condition: Improving Discharge Details Clinical Impression: Bee sting Primary Care Provider: Florencio Bailey ED Provider: John Pablo Home Meds and New Rx's Prescriptions: New prednisone 20 mg tablet 60 mg PO DAILY 4 Days Qty: 12 0RF Continued metoprolol tartrate 25 mg tablet 25 mg PO PRN Qty: 90 6RF Rx Instructions: Take 1 -2 tab every 8 - 12 hrs for breakthrough Afib with HR > 140 bpm for > 20 min losartan 100 mg tablet 100 mg PO DAILY Qty: 90 3RF aspirin [Aspirin Low-Strength] 81 MG tablet,chewable 81 mg PO DAILY Qty: 180 sildenafil [Viagra] 50 mg tablet 50 mg PO PRN Qty: 6 12RF hydrochlorothiazide 25 mg tablet 25 mg PO DAILY Qty: 90 6RF Discharge Instructions Instructions: Insect Bite or Sting (ED) Additional Instructions: Continue [id number] Benadryl and Pepcid as directed. Add on prednisone as directed. Cool compresses as tolerated. Please watch for new or worsening symptoms and return to the ER for any concerns. Otherwise follow-up with your PCP tomorrow morning as already scheduled. Medical Decision Making 61-year-old gentleman who was stung by yellow jacket bees approximately 1 hour ago, took 50 mg oral Benadryl, and reports symptoms are already improving. He reports mild discomfort at the sites of the stings on his upper and lower extremities and he does have mild swelling of his left upper lid at the site of a sting, this too is improving. Denies any chest pain, wheezing, lip or tongue swelling, difficulty breathing or speaking. Patient appears to be having multiple mild localized reactions to bee stings, no signs of systemic reaction, angioedema, etc. He appears well, nontoxic and his symptoms are already improving after taking Benadryl. We discussed adding oral steroids, 60 mg prednisone now. He will take Pepcid when he gets home. He already has an appointment with his PCP tomorrow at 8:40 AM. I will provide a 4-day burst dose of steroids as well. Standard discharge and return precautions were provided. Patient understands, is agreeable to this plan, and has no additional questions or concerns upon discharge. This documentation was generated using [employer] (Proprietary)ation system, please disregard any oddities of phrase or misspellings. Medical Records Medical records reviewed: Yes I reviewed the patient's medical records. HPI General Mode of arrival: ambulatory . Date/Time Provider Initiated Documentation: 03/05/22 19:39 . Limitations to Documentation: no limitations . Information obtained by: patient . History of Present Illness 61 year old M presents to the emergency department with the chief complaint of Bee sting, described as mild, with intensity rated at 3. Quality is described as aching, and is localized to the eyes (Left), left, right, upper extremity and lower extremity. Patient started experiencing this minute(s) and it has been other (improving). Medication improves symptom(s), No exacerbating factors reported . Patient notes no other symptoms.. Patient did receive the following treatments prior to arrival, other (Benadryl) Related Data Home Medications Medication Instructions Recorded Confirmed aspirin 81 mg chewable tablet 81 mg PO DAILY #180 tab-caps 04/08/15 03/05/22 (Aspirin Low-Strength) metoprolol tartrate 25 mg tablet 25 mg PO PRN #90 tabs 02/08/20 03/05/22 sildenafil 50 mg tablet (Viagra) 50 mg PO PRN #6 tabs 02/09/20 03/05/22 hydrochlorothiazide 25 mg tablet 25 mg PO DAILY #90 tabs 05/29/21 03/05/22 losartan 100 mg tablet 100 mg PO DAILY #90 tabs 11/21/21 03/05/22 prednisone 20 mg tablet 60 mg PO DAILY 4 days #12 tabs 03/05/22 Previous Rx's Medication Instructions Recorded metoprolol tartrate 25 mg tablet 25 mg PO PRN #90 tabs 02/08/20 sildenafil 50 mg tablet (Viagra) 50 mg PO PRN #6 tabs 02/09/20 hydrochlorothiazide 25 mg tablet 25 mg PO DAILY #90 tabs 05/29/21 losartan 100 mg tablet 100 mg PO DAILY #90 tabs 11/21/21 prednisone 20 mg tablet 60 mg PO DAILY 4 days #12 tabs 03/05/22 Allergies Allergy/AdvReac Type Severity Reaction Status Date / Time metoprolol AdvReac Mild fatigue Verified 03/05/22 19:42 bisoprolol AdvReac fatigue Verified 03/05/22 19:42 General Stated Complaint: GenMedical GLADYS: 4 Review of Systems Constitutional Constitutional: Denies headache(s) Eyes Eyes: Denies change in vision ENT Ears, Nose, Mouth, and Throat: Denies headache(s), Denies lip swelling, Denies throat swelling and Denies tongue swelling Cardiovascular Cardiovascular: Denies chest pain and Denies dyspnea Respiratory Respiratory: Denies dyspnea and Denies wheezing Gastrointestinal Gastrointestinal: Denies abdominal pain, Denies nausea and Denies vomiting Integumentary/Breasts Skin/Breast: Reports erythema Neurologic Neurologic: Denies headache(s) Allergic/Immunologic Allergic/Immunologic: Denies lip swelling, Denies throat swelling, Denies tongue swelling and Denies wheezing PFSH All Active Problems (Updated 03/05/22 @ 20:08 by GREY Levy) Bee sting (Acute) Hyperglycemia (Acute) [id number]% Essential hypertension (Acute) Chronic kidney disease, stage 3 (Acute) 2020, Cr-1.8 Femoral acetabular impingement (Acute) Left hip Asymmetrical sensorineural hearing loss (Chronic) Peripheral neuralgia (Acute) Palpitations (Acute 08/04/13) neg stress/card consult 2010 Obesity (Acute) Migraine (Acute) Atrial fibrillation (Acute 02/06/15) paroxy. s/p ablation, status post successful ablation at [facility] about 2019 Medical History Hypertension Paroxysmal A-fib Surgical History Colonoscopy - IV Sedation (07/29/16) Family History Mother Essential hypertension Father Heart disease [place] Neoplasm MULTIPLE MYELOMA Sister No problems noted. Brother No problems noted. Grandfather No problems noted. Grandfather Heart disease Grandmother Neoplasm Grandmother Neoplasm Sister No problems noted. Social History Smoking/Tobacco Use Status: Former Tobacco Use Smokeless tobacco user: chewing tobacco Second Hand Exposure: Yes Smoking risk assessment performed?: Yes Alcohol Intake: former Year quit: 2016 Details: No alcohol x 5 years. Drug use: Never Substance use type: does not use current occupation: Teacher Pets and animals: Yes Pets and animals: cat(s), dog(s), horse(s) and farm anim als Sexually active: Yes Do you think of yourself as: straight/heterosexual Current gender identity: male What is your relationship status?: How often do you talk on the phone with friends or family?: three or more times per week How often do you get together with friends or relatives?: once per week How often do you attend evangelical or samaritan services?: decline to answer Do you belong to any clubs or organized social groups?: no Panel score (0-1 are the most socially isolated patients): 2 What type of physical activity do you participate in: walking and weight lifting Duration: > 90 minutes/day Frequency: daily Seatbelt use: always Drive intox or ride w/intox independent driver: No Do you feel safe in your relationship?: Yes Exam Const General: cooperative, healthy appearing, comfortable and no acute distress Orientation: alert and awake HENMT Head: normal to inspection, normocephalic and atraumatic Face and sinus: normal facial exam Mouth: oral mucosae normal and moist mucous membranes Throat: posterior oropharynx normal Eyes Alignment and Position: alignment normal Periorbital: periorbital findings normal Eyelids: eyelid abnormality left upper eyelid swelling Conjunctivae: conjunctivae normal Sclera: sclerae normal Cornea: corneas normal Pupils: PERRL EOM: EOM intact bilaterally Direct ophthalmoscopy: normal light reflex Neck Neck: normal visual inspection, full ROM, trachea midline and supple Resp Effort & Inspection: normal respiratory effort and able to speak in complete sentences Auscultation: clear to auscultation bilaterally Cardio Rate: regular rate Rhythm: regular rhythm Skin General skin exam: erythema Neuro General: patient alert, patient awake, moves all extremities and no focal motor deficits Cognition: normal cognition Speech: speech normal Gait: normal gait Motor: muscle tone normal throughout Sensory Exam: no sensory deficits noted Extrem General: full ROM and capillary refill normal Other: Patient has multiple areas of macular erythema to both upper and lower extremities, centrally there is a puncture wound with no obvious stinger or foreign body. There is no additional hives or wheals. The erythema is in association with a actual sting. Psych Appearance: grossly normal Mental Status: mental status grossly normal Course Vital Signs Vital signs: Vital Signs Temperature 36.4 C L 03/05/22 19:38 Pulse 61 03/05/22 19:38 Respiratory Rate 18 03/05/22 19:38 Blood Pressure 148/87 H 03/05/22 19:38 Pulse Oximetry 100 03/05/22 19:38 Temperature 36.4 C L 03/05/22 19:38 Pulse 61 03/05/22 19:38 Respiratory Rate 18 03/05/22 19:38 Blood Pressure 148/87 H 03/05/22 19:38 Blood Pressure Position Sitting 03/05/22 19:38 Pulse Oximetry 100 03/05/22 19:38 Pain Level 6 03/05/22 19:38
[2022-03-05] MEDS: predniSONE 20 MG TAB 60 MG PO (20:05)
== END 2022-03-05 20:31 | disposition home or self-care (01) ==
PROVIDERS: Emergency Provider Physician Assistant; PCP Nurse Practitioner Family
DX: T63.441A Toxic effect of venom of bees, accidental (unintentional), initial encounter (principal); I10 Essential (primary) hypertension; I48.91 Unspecified atrial fibrillation; F17.220 Nicotine dependence, chewing tobacco, uncomplicated
CPT/HCPCS: 99283; 99284; J7512

== ENCOUNTER 2022-03-18 03:15 | Outpatient (CLI) | payer BC, SELFPAY ==
[2022-03-18 12:35] LABS: ALT 29 U/L (16-63); AST 22 U/L (15-37); Alkaline Phosphatase 79 U/L (46-116); Anion Gap 7.1 mmol/L (3-11); BUN 33 mg/dL (7-18); Bilirubin, Total 0.6 mg/dL (0.2-1.0); CO2 30.9 mmol/L (21.0-32.0); CREATININE 1.9 mg/dL (0.70-1.30); Calcium 8.9 mg/dL (8.5-10.1); Calculated LDL 119 mg/dL (<100); Chloride 104 mmol/L (98-107); Cholesterol 185 mg/dL (<200); Estimated GFR 36.22 (mL/min/1.73m2); Glucose 141 mg/dL (74-106); HDL Cholesterol 43 mg/dL (40-60); Potassium 4.1 mmol/L (3.5-5.1); Sodium 142 mmol/L (136-145); Total Protein 7.4 g/dL (6.4-8.2); Triglyceride 118 mg/dL (<150)
[2022-03-19 08:59] LABS: Hepatitis C Ab w Rflx HCV PCR Negative (Negative)
== END 2022-03-18 03:16 | disposition home or self-care (01) ==
LOC: LOS 03:15
PROVIDERS: PCP Nurse Practitioner Family; Visit Provider Nurse Practitioner Family
DX: I10 Essential (primary) hypertension (principal); N18.30 Chronic kidney disease, stage 3 unspecified; Z11.59 Encounter for screening for other viral diseases; Z13.6 Encounter for screening for cardiovascular disorders
CPT/HCPCS: 36415; 80053; 80061; 86803

== ENCOUNTER 2022-06-04 10:12 | Outpatient (CLI) | payer BC, SELFPAY ==
--- NOTE | 2022-06-04 10:00 | RT.EKG_ITS ---
APPROVED REPORT Exam: Resting ECG Reason for Exam: afib Patient Location: O HR:79 bpm ECG Measurements Heart Rate 79 AXIS W[place] 164 P 51 QRSd 95 QRS 49 QT 356 T 29 QTc 409 Conclusion Sinus rhythm...normal P axis, V-rate 50- 99 Normal Electrocardiogram
== END 2022-06-04 10:13 | disposition home or self-care (01) ==
LOC: DI.CARD 10:13
PROVIDERS: PCP Nurse Practitioner Family; Visit Provider Internal Medicine Cardiovascular Disease
DX: I48.91 Unspecified atrial fibrillation (principal)
CPT/HCPCS: 93010

== ENCOUNTER 2022-12-30 05:22 | Outpatient (CLI) | payer BC, SELFPAY ==
[2022-12-30 12:21] LABS: HCT 41.5 % (40.0-50.0); HGB 14.8 g/dL (13.5-17.5); MCH 29.3 pg (27.0-33.0); MCHC 35.7 % (32.0-36.0); MCV 82 fL (80-95); MPV 11.2 fL (8.0-11.0); Platelet Count 204 10^3/uL (130-400); RBC 5.05 10^6/uL (4.36-5.78); RDW-SD 36.1 fL; WBC 6.92 10^3/uL (4.4-10.8)
[2022-12-30 12:36] LABS: PTT Activated 26.3 sec (21.5-31.9)
[2022-12-30 12:54] LABS: Hemoglobin A1C 6.2 % (<5.7)
== END 2022-12-30 05:23 | disposition home or self-care (01) ==
LOC: LOS 05:23
PROVIDERS: PCP Nurse Practitioner Family; Visit Provider Nurse Practitioner Family
DX: T14.8XXA Other injury of unspecified body region, initial encounter (principal); E11.9 Type 2 diabetes mellitus without complications
CPT/HCPCS: 36415; 85027; 83036; 85730

== ENCOUNTER 2023-10-07 10:21 | Outpatient (CLI) | payer BC, SELFPAY ==
--- NOTE | 2023-10-07 10:15 | RT.EKG_ITS ---
APPROVED REPORT Exam: Resting ECG Reason for Exam: followup Patient Location: O HR:70 bpm ECG Measurements Heart Rate 70 AXIS [place] 165 P 40 QRSd 100 QRS 29 QT 383 T 40 QTc 414 Conclusion Sinus rhythm...normal P axis, V-rate 50- 99 Ventricular premature complex...V complex w/ short R-R interval Baseline wander in lead(s) V2 Otherwise normal ECG
== END 2023-10-07 10:22 | disposition home or self-care (01) ==
LOC: DI.CARD 10:22
PROVIDERS: PCP Family Medicine; Visit Provider Internal Medicine Cardiovascular Disease
DX: I48.91 Unspecified atrial fibrillation (principal)
CPT/HCPCS: 93010

== ENCOUNTER 2024-02-01 08:17 | Outpatient (CLI) | payer BC, SELFPAY ==
[2024-02-01 12:51] LABS: HCT 41.6 % (40.0-50.0); MCH 30.1 pg (27.0-33.0); MCHC 36.1 % (32.0-36.0); MCV 84 fL (80-95); Platelet Count 187 10^3/uL (130-400); RBC 4.98 10^6/uL (4.36-5.78); WBC 6.42 10^3/uL (4.4-10.8)
[2024-02-01 13:04] LABS: Anion Gap 9.9 mmol/L (3-11); BUN 31 mg/dL (7-18); CO2 28.1 mmol/L (21.0-32.0); CREATININE 2.1 mg/dL (0.70-1.30); Calcium 9.4 mg/dL (8.5-10.1); Calculated LDL 96 mg/dL (<100); Chloride 105 mmol/L (98-107); Cholesterol 181 mg/dL (<200); Estimated GFR 34.72 (mL/min/1.73m2); Glucose 165 mg/dL (74-106); HDL Cholesterol 42 mg/dL (40-60); Potassium 3.6 mmol/L (3.5-5.1); Sodium 143 mmol/L (136-145); Triglyceride 216 mg/dL (<150)
[2024-02-01 14:06] LABS: COMMENT (LAB VIEW ONLY) 109.18 mg/dL; Microalb ug/mg Crea 59.5 ug/mg Cr
[2024-02-01 19:08] LABS: PSA, Screening 2.3 ng/mL (<=4.5)
== END 2024-02-01 08:18 | disposition home or self-care (01) ==
LOC: LOS 08:17
PROVIDERS: PCP Family Medicine; Referring Provider Family Medicine; Visit Provider Family Medicine
DX: E78.5 Hyperlipidemia, unspecified (principal); Z12.5 Encounter for screening for malignant neoplasm of prostate; E87.1 Hypo-osmolality and hyponatremia; I48.91 Unspecified atrial fibrillation; E11.9 Type 2 diabetes mellitus without complications; N18.30 Chronic kidney disease, stage 3 unspecified
CPT/HCPCS: 36415; 80048; 80061; 84153; 85027; 82043; 82570

== ENCOUNTER 2024-02-17 01:04 | Outpatient (CLI) | payer BC, SELFPAY ==
[2024-02-18 15:33] LABS: Albumin 62.6 % (55.8-66.1); Albumin g/dL 4.3 g/dL (3.6-5.2); Comment (See Note); Total Protein 6.9 g/dL (6.3-8.2)
[2024-03-22 09:55] LABS: Immunotyping, Serum (See Note)
== END 2024-02-17 01:05 | disposition home or self-care (01) ==
PROVIDERS: PCP Family Medicine; Visit Provider Family Medicine
DX: N18.30 Chronic kidney disease, stage 3 unspecified (principal)
CPT/HCPCS: 36415; 84165; 86320

== ENCOUNTER 2025-05-31 07:48 | Outpatient (CLI) | payer BC, SELFPAY ==
--- NOTE | 2025-05-31 07:45 | RT.EKG_ITS ---
APPROVED REPORT Exam: Resting ECG Reason for Exam: PAF Patient Location: O HR:64 bpm ECG Measurements Heart Rate 64 AXIS NC 167 P 27 QRSd 93 QRS 42 QT 389 T 38 QTc 402 Conclusion Sinus rhythm...normal P axis, V-rate 50- 99 Normal Electrocardiogram
== END 2025-05-31 07:49 | disposition home or self-care (01) ==
LOC: DI.CARD 07:49
PROVIDERS: PCP Family Medicine; Visit Provider Internal Medicine Cardiovascular Disease
DX: I48.0 Paroxysmal atrial fibrillation (principal)
CPT/HCPCS: 93010